=== PATIENT | female | born 1980 | race American Indian/Alaskan Native ===

== ENCOUNTER 2016-07-27 18:00 | Emergency (ER) | payer OTHER ==
[2016-07-27 19:48] LABS: Bacteria,Urine 1+ /HPF (Negative); Bilirubin,Urine NEG (Negative); Blood,Urine NEG (Negative); Ketones,Urine TR mg/dL (Negative); Leukocyte Esterase,Urine NEG (Negative); Mucus,Urine 2+ /HPF; Nitrite,Urine NEG (Negative); Urobilinogen,Urine < 2.0 mg/dL (<2.0)
[2016-07-27] MEDS ORDERED: TORADOL IM ONE (21:15)
[2016-07-27] MEDS ORDERED: FLEXERIL PO ONE (21:15)
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
[2016-07-28 05:18] VITALS: BP 136/75
== END 2016-07-27 21:50 | disposition home or self-care (01) ==
LOC: ED 18:00
DX: M54.5 Low back pain (principal); M25.511 Pain in right shoulder; M25.512 Pain in left shoulder; N30.01 Acute cystitis with hematuria; V49.9XXA Car occupant (driver) (passenger) injured in unspecified traffic accident, initial encounter; Y93.89 Activity, other specified; Y99.8 Other external cause status; Y92.488 Other paved roadways as the place of occurrence of the external cause
CPT/HCPCS: 81001; 81025; 99283; J1885